=== PATIENT | female | born 1985 | race Caucasian/White ===

== ENCOUNTER 2023-09-06 18:39 | Emergency (ER) | payer BC, SELFPAY ==
[2023-09-06 18:43] VITALS: BP 139/89
--- NOTE | 2023-09-06 23:03 | ED.GENMED ---
History of Present Illness
General
Chief Complaint: DVT/Possible Blood Clot
Source: patient
Exam Limitations: none
Time Seen by Provider: 09/06/23 19:35
Nursing documentation reviewed up to this point in time: agreed with
Travel History
Have you had any contact with someone who has COVID-19?: No
Do you have any symptoms of coronavirus? Fever > 100 degrees, chills, cough, shortness of breath, sore throat, loss of taste or smell, muscle aches, or headache?: No
History of Present Illness
History of Present Illness:
Patient to ED with complaint of pain to her right calf. Symptoms started 3 days ago. No history of trauma. Reports intermittent pain, lasting only a few minutes. No swelling or redness to extremity. Advised by PCP to come to ED for eval. No
prior history of same.
Past History
Past History
ED Past Medical History: None
ED Past Surgical History: None
Review of Systems
Review of Systems
Allergies reviewed?: Yes
All Other Systems: ROS reviewed and negative except as documented in HPI and ROS
Constitutional: Reports no symptoms
Respiratory: Reports no symptoms
Cardiac: Reports no symptoms
Musculoskeletal: Reports other (right calf pain)
Skin: Reports no symptoms
Neurological: Reports no symptoms
Psychiatric: Reports no symptoms
Phy Exam
General Physical Exam
General Presentation: well appearing and no apparent distress
General age: appears stated age
General Skin: warm and dry
General Habitus: normal
General Mental: alert
Musculoskeletal Exam
Musculoskeletal Exam: full ROM, no edema and neuro vasc intact
Skin Exam
Skin Exam: normal color, warm/dry and no rash
Psychiatric Exam
Psychiatric Exam: normal mood/affect
Course
Orders/Labs/Results
Orders:
Orders
09/06/23 18:51
US Legs, Right [US Periph Venous LOWER Ext RT] Urgent
Comment:
Reason For Exam: intermittent pain
Vital Signs
Initial and Last Documented VS:
Initial Vital Signs
Temp Pulse Resp BP Pulse Ox
98.1 F 74 16 139/89 98
09/06/23 18:43 09/06/23 18:43 09/06/23 18:43 09/06/23 18:43 09/06/23 18:43
Last Documented Vital Signs
Temp Pulse Resp BP Pulse Ox
98.1 F 74 16 139/89 98
09/06/23 18:43 09/06/23 18:43 09/06/23 18:43 09/06/23 18:43 09/06/23 18:43
*Radiology
Radiology exam reviewed: radiology read reviewed
*Pulse Oximetry
Patient hypoxic: no
*Critical Care Note
Total Time (30-74mins, 75-104mins- exclusive of procedures): Not Applicable
ED Attending Note
-
Portions of this chart may have been created with voice recognition software.� Occasional wrong word or��sound alike� substitutions may have occurred due to the inherent limitations of voice recognition software.
Discharge Plan
Departure
Patient Disposition: Home (Routine Discharge)
Date of Disposition: 09/06/23
Time of Disposition: 21:00
Patient with high blood pressure during this ER visit?: No
Condition: Good
Covid-19: Not Applicable
Discharge Problem:
Right calf pain
Instructions: Musculoskeletal Pain
Referrals:
DUTCHE,LUCÍAA [Other]
Interventions
Interventions:
*Risk Screen - Suicide Last Done: 09/06/23 19:47
*General Assessment Last Done: 09/06/23 19:47
*Neglect/Abuse Screening Last Done: 09/06/23 19:47
*ED COVID-19 Vaccine History Last Done: 09/06/23 18:43
*Nursing Disposition Last Done: 09/06/23 21:30
ED- Cardiac Assessment Last Done: 09/06/23 19:47
ED- Pulmonary Assessment Last Done: 09/06/23 19:47
ED-Peripheral Vascular Assessment Last Done: 09/06/23 19:47
ED-Skin Assessment Last Done: 09/06/23 19:47
Discharge Date and Time
Discharge Date/Time: 09/06/23 21:30
Print Language: KINYARWANDA
Musculoskeletal Injury Exam
Musculoskeletal Injury Exam
Right Calf:
Pain with Movement?: None
Tender to palpation?: None
Soft tissue swelling?: None
External deformity and angulation?: None
Joint effusion?: None
Contusion?: None
Hematoma-local bleeding into tissue?: None
Crepitus with movement?: No
Joint instability?: No
Malalignment/deformity?: No
Range of motion: Full
Distal skin color and temperature: normal-warm & good color
Capillary Refill: normal
Normal distal neurovascular exam?: Yes
Peripheral Pulses: posterior tibial (right): 3+ and dorsalis pedis (right): 3+
== END 2023-09-06 21:30 | disposition home or self-care (01) ==
LOC: EMR 18:39
PROVIDERS: EMERGENCY PHYSICIAN Emergency Medicine
DX: M79.661 Pain in right lower leg (principal)
CPT/HCPCS: 99284; 93971

== ENCOUNTER 2024-04-24 21:54 | Emergency (ER) | payer BC, SELFPAY ==
[2024-04-24 22:00] VITALS: BP 154/95
[2024-04-24 22:53] VITALS: BMI 29.2
--- NOTE | 2024-04-24 23:25 | ED.GENMED ---
History of Present Illness
General
Chief Complaint: Anal/Rectal Problem
Source: patient
Exam Limitations: none
Time Seen by Provider: 04/24/24 23:13
Nursing documentation reviewed up to this point in time: agreed with
History of Present Illness
History of Present Illness:
This is a 38-year-old female with history of asthma, ADD who admits to somewhat recurrent external hemorrhoids with complaints of severe, painful external hemorrhoid that began several days ago, severe pain in the past 2 to 3 days. She admits to
similar painful external hemorrhoids perhaps 6 months ago and just dealt with it with [id number] topical medications.
She has had rare bleeding from hemorrhoids but not recently. She denies abdominal pain. Rare episodes of constipation but not recently.
No dysuria and urgency and or hematuria. No fever nor chills.
She works in [place] and due to severe pain was evaluated at an ER earlier today in [place] where she was afforded with immediate relief after local injection with lidocaine. She was prescribed Anusol suppositories as well as topical numbing
preparation. Since lidocaine has worn off, severe pain has returned and thus far no relief with Anusol suppository nor topical numbing medication.
She is unable to sit due to severe pain.
Past History
Past History
ED Past Medical History: Asthma, Psychiatric (ADD) and Other (External hemorrhoids)
ED Past Surgical History:
Social History
Tobacco: Non-smoker
Alcohol: None
Drug: None
Personal:
Living: with family
Employment: Employed
Family History
Family History: Other (Noncontributory)
Phy Exam
Physical Exam
Physical Exam:
GENERAL: 38-year-old woman appears her stated age, awake and alert, pleasant, mildly tearful related to pain but easily communicative and cooperative.
EYE: anicteric
NECK: Supple, nontender, no meningismus, no significant adenopathy.
ENT: oral mucosa is moist. No rhinorrhea.
CARDIAC: Regular rate and rhythm. no murmur.
LUNGS: Clear breath sounds bilaterally, no acute respiratory distress, no wheezes/rales/rhonchi
ABDOMEN: Soft, nondistended, without focal tenderness, no r/g, no cvat. normoactive BS.
Rectal exam reveals a large thrombosed external hemorrhoid that is exquisitely tender. No surrounding erythema nor soft tissue swelling. No perirectal tenderness.
NEUROLOGICAL: Alert and oriented x3, no focal neuro deficits. Gait is steady.
SKIN: Warm and dry, normal color, skin intact. No rash.
MUSCULOSKELETAL: No C/C/E. peripheral pulses are full and equal b/l. No palpable tenderness.
PSYCH: Mildly anxious, tearful related to pain. Cooperative, easily conversant.
Course
Orders/Labs/Results
Orders:
Orders
04/24/24 23:21
Lidocaine 2% [Lidocaine Uro-Jet 2%] 1 syringe .ROUTE .[facility]
Vital Signs
Initial and Last Documented VS:
Initial Vital Signs
Temp Pulse Resp BP Pulse Ox
98.2 F 94 16 154/95 99
04/24/24 22:00 04/24/24 22:00 04/24/24 22:00 04/24/24 22:00 04/24/24 22:00
Last Documented Vital Signs
Temp Pulse Resp BP Pulse Ox
98.2 F 94 16 154/95 99
04/24/24 22:00 04/24/24 22:00 04/24/24 22:00 04/24/24 22:00 04/24/24 22:00
Procedures
Incision/Drainage/Joint Aspiration
right anal verge:
Anethesia: 1% Lidocaine with Epi, Added Na bicarb to local and other (lidocaine 2% jelly topical applied 10 minutes prior to local infiltration)
Preparation: cleaned with Betadine
Type of procedure: incise
Nature of site: other (Thrombosed external hemorrhoid)
How much fluid was obtained?: small amount (Small amount of organized clot expressed from thrombosed external hemorrhoid)
Fluid description: bloody (Organized dark blood clot)
Treatment: left open for drainage
MDM/Problems Addressed
Differential Diagnosis Includes:
Patient presents with thrombosed painful external hemorrhoid.
Nothing to indicate perirectal nor anal abscess.
Hemodynamically stable. Afebrile.
Will plan to incise thrombosed hemorrhoid for pain relief.
Chronic conditions affecting care: Other (Patient reports prior history of external hemorrhoids. No previous surgical interventions.)
*Pulse Oximetry
Patient hypoxic: no
*Critical Care Note
Total Time (30-74mins, 75-104mins- exclusive of procedures): Not Applicable
Update Note
Update Note:
Thrombosed external hemorrhoid incised with #11 blade. Organized clot expressed from hemorrhoid. No residual bleeding. Local 4 x 4 applied. Patient notes complete relief of pain.
There is note of a nonthrombosed, nontender external hemorrhoid anterior aspect.
Will discharge to home with recommendations to resume Anusol suppositories starting tomorrow.
Recommend adding daily Metamucil and staying well-hydrated on a daily basis. Encouraged to avoid straining at stool.
Patient has already received referral to colorectal surgeon in her health network in [place]. She plans to call tomorrow.
ED Attending Note
-
Portions of this chart may have been created with voice recognition software.� Occasional wrong word or��sound alike� substitutions may have occurred due to the inherent limitations of voice recognition software.
Discharge Plan
Departure
Patient Disposition: Home (Routine Discharge)
Date of Disposition: 04/25/24
Time of Disposition: 00:04
Patient with high blood pressure during this ER visit?: No
Discharge Problem:
External hemorrhoid, thrombosed
Instructions: Hemorrhoids (DC), How to Do a Sitz Bath
Prescriptions:
No Action
lisdexamfetamine [Vyvanse] 40 mg Capsule
40 mg PO DAILY
Referrals:
UNKNOWN - PT DOES,NOT KNOW [Family Provider] -
Activity Restrictions/Additional Instructions:
Resume Anusol suppositories tomorrow.
Add a daily dose of Metamucil, 2 heaping teaspoonfuls in 8 to 10 ounces of water.
You may take Tylenol versus ibuprofen as needed for pain.
Follow-up with colorectal surgeon for further evaluation.
Interventions
Interventions:
*Risk Screen - Suicide Last Done: 04/24/24 22:00
*Neglect/Abuse Screening Last Done: 04/24/24 22:00
ED-Skin Assessment Last Done: 04/24/24 23:30
Discharge Date and Time
Print Language: SYRIAN
[2024-04-25 00:15] VITALS: BP 127/90
== END 2024-04-25 00:16 | disposition home or self-care (01) ==
LOC: EMR 21:54
PROVIDERS: EMERGENCY PHYSICIAN Emergency Medicine
DX: K64.5 Perianal venous thrombosis (principal)
CPT/HCPCS: 99283; 46083